=== PATIENT | female | born 2000 | race Caucasian/White ===

== ENCOUNTER 2020-10-19 12:29 | Inpatient (IN) | payer OTHER ==
[~2020-10-19] VITALS: Ht 175.3 cm; Wt 90.3 kg
[~2020-10-19 12:29] MED LIST: BCP; LEXAPRO 10MG TA10 MG PO; TESSALON PERLE100 MG PO; VENTOLIN HFA IN18 GM INH
[2020-10-19 13:22] LABS: BILIRUBIN NEGATIVE (NEGATIVE); BLOOD 3+ Ery/uL (NEGATIVE); CLARITY CLEAR (CLEAR); COLOR YELLOW (YELLOW); GLUCOSE (U) NORMAL (NORMAL); LEUKOCYTES 2+ Leu/uL (NEGATIVE); NITRITE NEGATIVE (NEGATIVE); PROTEIN 1+ mg/dL (NEGATIVE); SPECIFIC GRAVITY 1.015 (1.001-1.030); UROBILINOGEN 0.2 mg/dL (0.2-1.0); pH 7.5 (5.0-9.0)
[2020-10-19 13:24] LABS: BASOPHIL 0.4 % (0-2); EOSINOPHIL 0.6 % (0-5); HCT 29.8 % (37.0-47.0); HGB 9.9 g/dl (12.5-16.0); LYMPHOCYTE 4.6 % (15-48); MCH 30.5 pg (25.0-31.0); MCHC 33.2 g/dL (32.0-36.0); MCV 91.7 fL (78.0-100.0); MONOCYTE 4.4 % (0-12); MPV 10.4 fL (6.0-9.5); NEUTROPHIL 88.6 % (41-80); NRBC 0; PLT 215 K/uL (150-400); RBC 3.25 M/uL (4.20-5.40); RDW 12.8 % (11.5-14.0); WBC 13.9 K/uL (4.0-10.5)
[2020-10-19 13:36] LABS: BACTERIA 1+; URINARY RBC 20-50
[2020-10-19 13:37] LABS: INR 0.99 (0.9-1.2); PROTHROMBIN TIME 12.4 SECONDS (11.4-13.6); PTT 27.7 SECONDS (22.2-34.7)
[2020-10-19 13:50] LABS: ALBUMIN 2.8 g/dL (3.4-5.0); BILIRUBIN - TOTAL 0.8 mg/dL (0.2-1.0); BUN/CREAT RATIO (CALC) 20.6 RATIO; CREATININE 0.68 mg/dL (0.51-0.95); GLOBULIN (CALCULATION) 3.3 g/dL; MAGNESIUM 1.6 mg/dL (1.8-2.4); POTASSIUM 4.4 mmol/L (3.5-5.1); TOTAL PROTEIN 6.1 g/dL (6.4-8.2)
[2020-10-19] MEDS ORDERED: TRANDATE100 MG PO (18:55)
--- NOTE | 2020-10-20 01:53 | NUR ---
PT DROPPING TO 88-89 ON OXYGEN, WENT TO CHECK ON PATIENT AND FOUND PATIENT SNORING. 2L NC PLACED AND PATIENT BACK ASLEEP WITH O2 SAT 97 AT THIS TIME.
[2020-10-20 06:49] LABS: BASOPHIL 0.5 % (0-2); EOSINOPHIL 1.3 % (0-5); HCT 29.1 % (37.0-47.0); HGB 9.6 g/dl (12.5-16.0); LYMPHOCYTE 9.6 % (15-48); MCH 30.5 pg (25.0-31.0); MCV 92.4 fL (78.0-100.0); MONOCYTE 6.6 % (0-12); MPV 10.3 fL (6.0-9.5); NEUTROPHIL 80.3 % (41-80); NRBC 0; PLT 223 K/uL (150-400); RBC 3.15 M/uL (4.20-5.40); WBC 9.9 K/uL (4.0-10.5)
[2020-10-20 07:09] LABS: BUN/CREAT RATIO (CALC) 21.5 RATIO; CREATININE 0.65 mg/dL (0.51-0.95); POTASSIUM 3.7 mmol/L (3.5-5.1)
[2020-10-20 12:49] LABS: ALBUMIN 2.7 g/dL (3.4-5.0); BILIRUBIN - DIRECT 0.2 mg/dL (0.00-0.20); BILIRUBIN - TOTAL 0.9 mg/dL (0.2-1.0); GLOBULIN (CALCULATION) 3.2 g/dL; TOTAL PROTEIN 5.9 g/dL (6.4-8.2)
[2020-10-21 06:12] LABS: HCT 34.1 % (37.0-47.0); HGB 11.1 g/dl (12.5-16.0); MCH 30.1 pg (25.0-31.0); MCHC 32.6 g/dL (32.0-36.0); MCV 92.4 fL (78.0-100.0); MPV 10.4 fL (6.0-9.5); RBC 3.69 M/uL (4.20-5.40); WBC 10.3 K/uL (4.0-10.5)
[2020-10-21 07:07] LABS: ALBUMIN 2.9 g/dL (3.4-5.0); BILIRUBIN - TOTAL 0.9 mg/dL (0.2-1.0); BUN/CREAT RATIO (CALC) 23.2 RATIO; CREATININE 0.69 mg/dL (0.51-0.95); GLOBULIN (CALCULATION) 3.4 g/dL; POTASSIUM 3.6 mmol/L (3.5-5.1); TOTAL PROTEIN 6.3 g/dL (6.4-8.2)
--- NOTE | 2020-10-21 08:48 | NUR ---
POST- FOLLOW UP APPOINTMENTS TO BE MADE WITH [facility] FOR BP CHECK LATER THIS WEEK OR EARLY NEXT, TELEMEDICINE TO BE SET UP FOR 2 WEEKS AND 5 WEEKS, ALONG WITH APPOINTMENT FOR IUD PLACEMENT AT 6 WEEKS POST-. -TY
[2020-10-21] MEDS ORDERED: TRANDATE100 MG PO (09:06)
[2020-10-21] MEDS ORDERED: LISINOPRIL10 MG PO (09:06)
[2020-10-21] MEDS ORDERED: COLACE100 MG PO (09:06)
[2020-10-21] MEDS ORDERED: LASIX20 MG PO (09:06)
[2020-10-21] MEDS ORDERED: CEFDINIR300 MG PO (09:06)
[2020-10-21] MEDS ORDERED: FEOSOL325 MG PO (09:06)
--- NOTE | 2020-10-21 09:21 | NUR ---
APPOINTMENTS MADE FOR PATIENT WITH [facility]. BP CHECK - Tuesday10/23/2020 @ 9:30 TELEMEDICINE - Tuesday11/04/2020 @ 9:15 & Tuesday11/26/2020 @ 8:45 IUD PLACEMENT - Tuesday12/02/2020 @ 2:15 PT GIVEN APPOINTMENT CARDS AND EDUCATED ON TELEMEDICINE. -TY
--- NOTE | 2020-10-21 09:35 | NUR ---
10/21/20 Ms. Lee, her spouse and their 7 day old share a home together. Ms. Lee reports the family to be able to meet their financial obligations. She reports to have needed baby supplies. No needs were identified.
== END 2020-10-21 10:15 | disposition home or self-care (01) | DRG 776 ==
LOC: FER 12:29 → FTCU 16:53
PROVIDERS: Emergency Medicine; Hospitalist; ADMIT Allergy & Immunology Allergy
DX: O90.3 Peripartum cardiomyopathy (principal); I50.20 Unspecified systolic (congestive) heart failure; O86.20 Urinary tract infection following delivery, unspecified; O14.95 Unspecified pre-eclampsia, complicating the puerperium; O99.03 Anemia complicating the puerperium; D64.9 Anemia, unspecified; Z20.822 Contact with and (suspected) exposure to COVID-19
CPT/HCPCS: 36415; 71045; 71275; 80048; 80053; 81001; 82040; 82247; 82248; 82550; 83735; 83880; 84075; 84145; 84155; 84450; 84460; 84484; 85025; 85379; 85610; 85730; 87088; 93005; J0360; J0696; J1650; J1940; J3475; J3490; Q9967; U0002

== ENCOUNTER 2020-10-26 21:42 | Day surgery (SDCO) | payer OTHER ==
[~2020-10-26] VITALS: Ht 175.3 cm; Wt 81.2 kg
[~2020-10-26 21:42] MED LIST changes: +CEFDINIR300 MG PO; +COLACE100 MG PO; +FEOSOL325 MG PO; +LASIX20 MG PO; +LISINOPRIL10 MG PO; +TRANDATE100 MG PO
[2020-10-26 22:32] LABS: BASOPHIL 0.3 % (0-2); EOSINOPHIL 0.4 % (0-5); LYMPHOCYTE 3.3 % (15-48); MCH 30.1 pg (25.0-31.0); MCHC 33.3 g/dL (32.0-36.0); MCV 90.3 fL (78.0-100.0); MONOCYTE 5.3 % (0-12); MPV 10.3 fL (6.0-9.5); NEUTROPHIL 89.8 % (41-80); NRBC 0; PLT 369 K/uL (150-400); RBC 4.65 M/uL (4.20-5.40); RDW 13.1 % (11.5-14.0)
[2020-10-26 22:36] LABS: INR 1.03 (0.9-1.2); PROTHROMBIN TIME 12.8 SECONDS (11.4-13.6)
[2020-10-26 22:41] LABS: WBC 32.5 K/uL (4.0-10.5)
[2020-10-26 22:51] LABS: CREATININE 0.85 mg/dL (0.51-0.95); PRO-BNP 37 pg/mL (<125)
[2020-10-26 22:52] LABS: ALBUMIN 3.6 g/dL (3.4-5.0); BILIRUBIN - TOTAL 0.8 mg/dL (0.2-1.0); GLOBULIN (CALCULATION) 4.3 g/dL; MAGNESIUM 1.5 mg/dL (1.8-2.4); POTASSIUM 4.7 mmol/L (3.5-5.1); TOTAL PROTEIN 7.9 g/dL (6.4-8.2)
[2020-10-26 23:04] LABS: LACTIC ACID 1.9 mmol/L (0.4-1.9)
[2020-10-27 00:19] LABS: BILIRUBIN NEGATIVE (NEGATIVE); BLOOD TRACE-INTACT Ery/uL (NEGATIVE); CLARITY HAZY (CLEAR); COLOR YELLOW (YELLOW); GLUCOSE (U) NORMAL (NORMAL); LEUKOCYTES 2+ Leu/uL (NEGATIVE); NITRITE NEGATIVE (NEGATIVE); PROTEIN TRACE (LOW) mg/dL (NEGATIVE); SPECIFIC GRAVITY 1.025 (1.001-1.030); UROBILINOGEN 0.2 mg/dL (0.2-1.0)
[2020-10-27 00:26] LABS: BACTERIA 2+; SQUAMOUS EPITHELIAL CELLS 20-50; URINARY WBC 20-50
[2020-10-27 00:58] LABS: BASOPHIL 0.2 % (0-2); EOSINOPHIL 0.3 % (0-5); HCT 39.5 % (37.0-47.0); HGB 13.1 g/dl (12.5-16.0); LYMPHOCYTE 3.4 % (15-48); MCH 29.7 pg (25.0-31.0); MCHC 33.2 g/dL (32.0-36.0); MCV 89.6 fL (78.0-100.0); MONOCYTE 3.3 % (0-12); MPV 10.1 fL (6.0-9.5); NEUTROPHIL 91.9 % (41-80); NRBC 0; PLT 289 K/uL (150-400); RBC 4.41 M/uL (4.20-5.40)
[2020-10-27 06:06] LABS: BILIRUBIN NEGATIVE (NEGATIVE); BLOOD NEGATIVE Ery/uL (NEGATIVE); CLARITY CLEAR (CLEAR); COLOR YELLOW (YELLOW); GLUCOSE (U) NORMAL (NORMAL); LEUKOCYTES NEGATIVE Leu/uL (NEGATIVE); NITRITE NEGATIVE (NEGATIVE); PROTEIN NEGATIVE (NEGATIVE); SPECIFIC GRAVITY 1.015 (1.001-1.030); UROBILINOGEN 0.2 mg/dL (0.2-1.0)
[2020-10-27 06:25] LABS: SQUAMOUS EPITHELIAL CELLS RARE
[2020-10-28 05:53] LABS: BASOPHIL 0.4 % (0-2); EOSINOPHIL 2.4 % (0-5); HCT 34.4 % (37.0-47.0); HGB 11.2 g/dl (12.5-16.0); LYMPHOCYTE 9.7 % (15-48); MCH 30.1 pg (25.0-31.0); MCHC 32.6 g/dL (32.0-36.0); MCV 92.5 fL (78.0-100.0); MONOCYTE 5.6 % (0-12); MPV 10.4 fL (6.0-9.5); NEUTROPHIL 81.3 % (41-80); NRBC 0; PLT 211 K/uL (150-400); RBC 3.72 M/uL (4.20-5.40); RDW 13.2 % (11.5-14.0); WBC 15.5 K/uL (4.0-10.5)
[2020-10-28 06:44] LABS: BUN 11 mg/dL (7-18); CREATININE 0.81 mg/dL (0.51-0.95); GLUCOSE 89 mg/dL (74-106)
[2020-10-28 06:45] LABS: C-REACTIVE PROTEIN >18.00 mg/dL (<=0.90); CHLORIDE 107 mmol/L (98-107); CO2 (BICARBONATE) 24 mmol/L (21-32); POTASSIUM 4.8 mmol/L (3.5-5.1)
[2020-10-28] MEDS ORDERED: VANCOMYCIN HCL250 MG PO (08:55)
--- NOTE | 2020-10-28 09:36 | NUR ---
PT LEFT AT 0930 D/C TO HOME IV AND TELY REMOVED. PT LEFT WITH . EDUCATION ON C-DIFF GIVEN TO PATIENT. AND D/C ORDERS GIVEN TO PATIENT.
--- NOTE | 2020-10-28 13:05 | NUR ---
TC PASSPORT FOR OVERRIDE FOR VANCOMYCIAN. SPOKE WITH ANDIE. SHE HAS PUT IN THE OVERRIDE AND PT. IS ABLE TO GET HER MEDICATION. 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
== END 2020-10-28 09:30 | disposition home or self-care (01) ==
LOC: FER 21:42 → FMS 10-27 05:38
PROVIDERS: Emergency Medicine; Nurse Practitioner; ADMIT Allergy & Immunology Allergy
DX: O86.89 Other specified puerperal infections (principal); O86.20 Urinary tract infection following delivery, unspecified; O16.5 Unspecified maternal hypertension, complicating the puerperium; O99.43 Diseases of the circulatory system complicating the puerperium; A04.72 Enterocolitis due to Clostridium difficile, not specified as recurrent; I42.9 Cardiomyopathy, unspecified; R07.9 Chest pain, unspecified; Z87.59 Personal history of other complications of pregnancy, childbirth and the puerperium
CPT/HCPCS: 36415; 71045; 80048; 80053; 81001; 83605; 83735; 83880; 84145; 84443; 84484; 85025; 85610; 86140; 87040; 87088; 87324; 87449; 93005; G0378; J2543; J3370; J7030; J7120